=== PATIENT | female | born 1985 | race American Indian/Alaskan Native ===

== ENCOUNTER 2020-10-14 21:09 | Emergency (ER) | payer MEDICAID, OTHER ==
[2020-10-14 22:02] VITALS: BP 151/76
[2020-10-14 23:03] LABS: Basophils % (Auto) 0.5 % (0.0-1.8); Eosinophils # (Auto) 0.2 K/mm3 (0.0-0.4); Hematocrit 40.1 % (30.3-42.9); Lymphocytes # (Auto) 2.9 K/mm3 (1.2-5.4); Lymphocytes % (Auto) 33.8 % (13.4-35.0); Mean Corpuscular HGB Conc 35 % (30-34); Mean Corpuscular Volume 91 fl (79-97); Monocytes # (Auto) 0.6 K/mm3 (0.0-0.8); Monocytes % (Auto) 7.5 % (0.0-7.3); Platelet Count 229 K/mm3 (140-440); Red Blood Count 4.39 M/mm3 (3.65-5.03); Red Cell Distribution Width 12.8 % (13.2-15.2)
[2020-10-14 23:08] LABS: Bacteria,Urine 1+ /HPF (Negative); Bilirubin,Urine NEG (Negative); Blood,Urine MOD (Negative); Color,Urine Yellow (Yellow); Mucus,Urine 1+ /HPF; Protein,Urine <15 mg/dL mg/dL (Negative); Urobilinogen,Urine < 2.0 mg/dL (<2.0)
--- NOTE | 2020-10-15 00:07 | Ultrasound Report ---
PELVIC ULTRASOUND INDICATION: vag bleeding COMPARISON: None pertinent available TECHNIQUE: Transabdominal and endovaginal FINDINGS: Uterus measures 8.8 x 4.4 x 7 cm. Endometrial stripe measures 8 mm. The endometrial canal h as a mildly complex appearance in its upper portion without a defined fluid collection. No gestationa l sac is identified. There is some central vascularity posteriorly which I suspect is just within the myometrium rather than truly within the endometrium. No mass is seen. Right ovary measures 4.3 cm in length and shows small follicular-type cysts. Left ovary measures 4.3 cm in length and shows small follicular-type cysts. No adnexal masses are seen. Flow is noted in both ovaries. At most a trace of free fluid is seen. IMPRESSION: No intrauterine is identified. There probably is a small amount of blood in the uterus. There is vascularity in the central uterus adjacent to the possibly of within the posterior margin of the endometrium but no mass is seen. Ectopic is not excluded but I do not see evidence of that process. Signer Name: Clarence Hart MD Signed: 10/15/2020 12:03 AM Workstation Name: [id number]
--- NOTE | 2020-10-15 03:48 | Emergency Department Report ---
ED Female HPI - General Chief complaint: Vaginal Bleeding Stated complaint: MISCARRIAGE ULTRASOUND/DR REFERRED Time Seen by Provider: 10/15/20 02:39 Source: patient Mode of arrival: Ambulatory Limitations: No Limitations - History of Present Illness Initial comments: Pat 2 days. Gene is a 34-year-old -[place] female who presents for vaginal bleeding times 2 days. Patient is followed by [facility]STATE [facility]ASING MANAGER she is 8.5 weeks , last menstrual cycle 3 months ago, patient is G3, patient described bleeding at this time as dark red moderate. There is no fever, chills, nausea or vomiting. There are no exacerbating or relieving factors. 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 Complaint: vaginal bleeding - Related Data Previous Rx's Medication Instructions Recorded Last Taken Type Amoxicillin [Trimox CAP] 500 mg PO Q8H #30 capsule 11/23/14 Unknown Rx HYDROcodone/APAP 5-325 [Chandler 1 each PO Q4-6H PRN #16 tablet 11/23/14 Unknown Rx 5/325] predniSONE [Deltasone] 20 mg PO TID #9 tab 11/23/14 Unknown Rx cephALEXin [Keflex] 500 mg PO BID 7 Days #14 cap 10/15/20 Unknown Rx traMADoL [Ultram] 50 mg PO Q6HR PRN #12 tablet 10/15/20 Unknown Rx Allergies Allergy/AdvReac Type Severity Reaction Status Date / Time No Known Allergies Allergy Unverified 01/31/13 12:51 ED Review of Systems ROS: Stated complaint: MISCARRIAGE ULTRASOUND/DR REFERRED Other details as noted in HPI Constitutional: denies: chills, fever Eyes: denies: eye pain, eye discharge, vision change ENT: denies: ear pain, throat pain Respiratory: denies: cough, shortness of breath, wheezing Cardiovascular: denies: chest pain, palpitations Endocrine: no symptoms reported Gastrointestinal: abdominal pain. denies: nausea, vomiting, diarrhea, melena Genitourinary: denies: urgency, dysuria, frequency, hematuria, discharge, dyspareunia Musculoskeletal: back pain. denies: joint swelling, arthralgia Skin: denies: rash, lesions Neurological: denies: headache, weakness, paresthesias Psychiatric: denies: anxiety, depression Hematological/Lymphatic: denies: easy bleeding, easy bruising ED Past Medical Hx - Past Medical History Previous Medical History?: No - Surgical History Past Surgical History?: No - Social History Smoking Status: Never Smoker Substance Use Type: Alcohol - Medications Home Medications: Home Medications Medication Instructions Recorded Confirmed Last Taken Type Amoxicillin [Trimox CAP] 500 mg PO Q8H #30 capsule 11/23/14 Unknown Rx HYDROcodone/APAP 5-325 [Chandler 1 each PO Q4-6H PRN #16 tablet 11/23/14 Unknown Rx 5/325] predniSONE [Deltasone] 20 mg PO TID #9 tab 11/23/14 Unknown Rx cephALEXin [Keflex] 500 mg PO BID 7 Days #14 cap 10/15/20 Unknown Rx traMADoL [Ultram] 50 mg PO Q6HR PRN #12 tablet 10/15/20 Unknown Rx ED Physical Exam - General Limitations: No Limitations General appearance: alert, in no apparent distress - Head Head exam: Present: atraumatic, normocephalic - Eye Eye exam: Present: normal appearance, EOMI Pupils: Present: normal accommodation - ENT ENT exam: Present: normal exam - Neck Neck exam: Present: normal inspection, full ROM. Absent: tenderness - Respiratory Respiratory exam: Present: normal lung sounds bilaterally. Absent: respiratory distress, wheezes, stridor, chest wall tenderness - Cardiovascular Cardiovascular Exam: Present: regular rate, normal rhythm, normal heart sounds. Absent: systolic murmur, diastolic murmur, rubs, gallop - GI/Abdominal GI/Abdominal exam: Present: soft, normal bowel sounds. Absent: distended, tenderness, guarding, rebound, rigid, bruit, hernia - Rectal Rectal exam: Present: deferred - Extremities Exam Extremities exam: Present: normal inspection, full ROM, normal capillary refill. Absent: tenderness - Back Exam Back exam: Present: normal inspection, full ROM. Absent: CVA tenderness (R), CVA tenderness (L) - Neurological Exam Neurological exam: Present: alert, oriented X3, CN II-XII intact, normal gait, reflexes normal. Absent: motor sensory deficit - Expanded Neurological Exam Expanded Patient oriented to: Present: person, place, time Speech: Present: fluid speech Motor strength exam: RUE: 5, LUE: 5, RLE: 5, LLE: 5 Best Eye Response (Glo): (4) open spontaneously Best Motor Response (Glo): (6) obeys commands Best Verbal Response (Glo): (5) oriented [place] Total: 15 - Psychiatric Psychiatric exam: Present: normal affect, normal mood - Skin Skin exam: Present: warm, dry, intact, normal color. Absent: rash ED Course Vital Signs 10/14/20 22:00 Pulse Rate 85 Respiratory 18 Rate Blood Pressure 151/76 O2 Sat by Pulse 100 Oximetry ED Medical Decision Making - Lab Data Result diagrams: 10/14/20 22:19 Labs 10/14/20 10/14/20 10/14/20 22:19 22:19 22:19 WBC 8.5 RBC 4.39 Hgb 14.0 Hct 40.1 MCV 91 MCH 32 MCHC 35 H RDW 12.8 L Plt Count 229 Lymph % (Auto) 33.8 [place] % (Auto) 7.5 H Eos % (Auto) 2.0 Baso % (Auto) 0.5 Lymph # (Auto) 2.9 [place] # (Auto) 0.6 Eos # (Auto) 0.2 Baso # (Auto) 0.0 Seg Neutrophils % 56.2 Seg Neutrophils # 4.8 HCG, Qual Negative HCG, Quant 1.79 Urine Color Urine Turbidity Urine pH Ur Specific [place] Urine Protein Urine Glucose (UA) Urine Ketones Urine Blood Urine Nitrite Urine Bilirubin Urine Urobilinogen Ur Leukocyte Esterase Urine WBC (Auto) Urine RBC (Auto) U Epithel Cells (Auto) Urine Bacteria (Auto) Urine Mucus Blood Type 10/14/20 10/14/20 22:19 22:47 WBC RBC Hgb Hct MCV MCH MCHC RDW Plt Count Lymph % (Auto) [place] % (Auto) Eos % (Auto) Baso % (Auto) Lymph # (Auto) [place] # (Auto) Eos # (Auto) Baso # (Auto) Seg Neutrophils % Seg Neutrophils # HCG, Qual HCG, Quant Urine Color Yellow Urine Turbidity Slightly-cloudy Urine pH 6.0 Ur Specific [place] 1.014 Urine Protein <15 mg/dl Urine Glucose (UA) Neg Urine Ketones Neg Urine Blood Mod Urine Nitrite Neg Urine Bilirubin Neg Urine Urobilinogen < 2.0 Ur Leukocyte Esterase Mod Urine WBC (Auto) 3.0 Urine RBC (Auto) 5.0 U Epithel Cells (Auto) 25.0 H Urine Bacteria (Auto) 1+ Urine Mucus 1+ Blood Type B POSITIVE - Radiology Data Radiology results: report reviewed, image reviewed TECHNIQUE: Transabdominal and endovaginal FINDINGS: Uterus measures 8.8 x 4.4 x 7 cm. Endometrial stripe measures 8 mm. The endometrial canal has a mildly complex appearance in its upper portion without a defined fluid collection. No gestational sac is identified. There is some central vascularity posteriorly which I suspect is just within the myometrium rather than truly within the endometrium. No mass is seen. Right ovary measures 4.3 cm in length and shows small follicular-type cysts. Left ovary measures 4.3 cm in length and shows small follicular-type cysts. No adnexal masses are seen. Flow is noted in both ovaries. At most a trace of free fluid is seen. IMPRESSION: No intrauterine is identified. There probably is a small amount of blood in the uterus. There is vascularity in the central uterus adjacent to the possibly of within the posterior margin of the endometrium but no mass is seen. Ectopic is not excluded but I do not see evidence of that process. Signer Na me: Clarence Hart MD Signed: 10/15/2020 12:03 AM Workstation Name: [id number] Transcribed By: GJ Dictated By: Clarence Hart MD Electronically Authenticated By: Clarence Hart MD Signed Date/Time: 10/15/20 0003 DD/ [id number] TD/TT: - Medical Decision Making Ultrasound OB no IUP, no IUP, Labs normal, ua posed for [place], patient will follow-up with [facility] LEASING MANAGER today [facility] [employer] [facility], patient DC'd to home in stable condition at this time. Patient will return to ED should symptoms worsen. Critical care attestation.: If time is entered above; I have spent that time in minutes in the direct care of this critically ill patient, excluding procedure time. ED Disposition Clinical Impression: Miscarriage Disposition: DC-01 TO HOME OR SELFCARE Is pt being admited?: No Does the pt Need Aspirin: No Condition: Stable Instructions: Miscarriage, [id number] Additional Instructions: Take medications as prescribed. Follow-up with [employer] ESTATE LEASING MANAGER today as scheduled. Return to emergency should symptoms worsen. Prescriptions: cephALEXin [Keflex] 500 mg PO BID 7 Days #14 cap traMADoL [Ultram] 50 mg PO Q6HR PRN #12 tablet PRN Reason: Pain Referrals: MAURICIO NICHOLSON MD [Primary Care Provider] - 3-5 Days Forms: Work/School Release Form(ED) Time of Disposition: 03:51
== END 2020-10-15 03:59 | disposition home or self-care (01) ==
LOC: ED 21:09
DX: O03.9 Complete or unspecified spontaneous abortion without complication (principal); Z3A.00 Weeks of gestation of pregnancy not specified; Z79.2 Long term (current) use of antibiotics; Z79.899 Other long term (current) drug therapy
CPT/HCPCS: 36415; 76801; 76817; 81001; 84702; 84703; 85025; 86900; 86901

== ENCOUNTER 2020-11-01 10:29 | Emergency (ER) | payer OTHER ==
[2020-11-01 10:44] VITALS: BP 137/75
--- NOTE | 2020-11-01 10:57 | Emergency Department Report ---
ED Female HPI - General Chief complaint: Urogenital-Female Stated complaint: SWELLING IN VAGINAL AREA Time Seen by Provider: 11/01/20 10:56 Source: patient Mode of arrival: Ambulatory Limitations: No Limitations - History of Present Illness Initial comments: 34-year-old female with no significant past history presents to the ER today with complaints of swelling to her labia. Patient states that she had some mild itching to start with but since then has gotten swollen and sore. She states that she also started her menstrual cycle today. She denies any apparent rash, or any apparent abnormal vaginal discharge. She denies any abdominal pelvic pain or lower back pain. She denies any UTI symptoms. She states that she has had the same sexual partner and is not concerned for STD. She denies any fever or chills. She reports no other symptoms at this time. Complaint: other (vaginal swelling) -: days(s) (1) Location: labia - Related Data Previous Rx's Medication Instructions Recorded Last Taken Type Fluconazole [Diflucan TAB] 200 mg PO QDAY #2 tablet 11/01/20 Unknown Rx metroNIDAZOLE [Flagyl] 500 mg PO Q12HR #14 tab 11/01/20 Unknown Rx Allergies Allergy/AdvReac Type Severity Reaction Status Date / Time No Known Allergies Allergy Unverified 01/31/13 12:51 ED Review of Systems ROS: Stated complaint: SWELLING IN VAGINAL AREA Other details as noted in HPI Comment: All other systems reviewed and negative Constitutional: denies: chills, fever Gastrointestinal: denies: abdominal pain, nausea, vomiting, diarrhea, constipation, hematemesis, hematochezia Genitourinary: other (vaginal swelling/soreness). denies: urgency, dysuria, frequency, hematuria, discharge, abnormal menses, dyspareunia Skin: pruritus (vaginal ) ED Past Medical Hx - Past Medical History Previous Medical History?: No - Surgical History Past Surgical History?: No - Social History Smoking Status: Never Smoker Substance Use Type: Alcohol - Medications Home Medications: Home Medications Medication Instructions Recorded Confirmed Last Taken Type Fluconazole [Diflucan TAB] 200 mg PO QDAY #2 tablet 11/01/20 Unknown Rx metroNIDAZOLE [Flagyl] 500 mg PO Q12HR #14 tab 11/01/20 Unknown Rx ED Physical Exam - General Limitations: No Limitations General appearance: alert, in no apparent distress - Head Head exam: Present: atraumatic, normocephalic, normal inspection - Respiratory Respiratory exam: Absent: respiratory distress - Cardiovascular Cardiovascular Exam: Present: regular rate - GI/Abdominal GI/Abdominal exam: Present: soft. Absent: distended, tenderness, guarding, rebound, rigid - External exam: Present: swelling (mild swelling noted to both left and right labia majora with some mild excoriations noted but otherwise no ulceration, abscess, or lesions or any other abnormality noted). Absent: erythema, lesions, lacerations, ecchymosis Speculum exam: Present: vaginal bleeding (small amt of blood noted in vaginal vault). Absent: erythema, vaginal discharge, tissue, laceration Bi-manual exam: Present: normal bi-manual exam. Absent: cervical motion tendernes, adnexal tenderness, adnexal mass - Neurological Exam Neurological exam: Present: alert, oriented X3, CN II-XII intact, normal gait - Psychiatric Psychiatric exam: Present: normal affect, normal mood - Skin Skin exam: Present: intact ED Course Vital Signs 11/01/20 10:41 Temperature 98.7 F Pulse Rate 66 Respiratory 18 Rate Blood Pressure 137/75 [Right] O2 Sat by Pulse 99 Oximetry ED Medical Decision Making - Medical Decision Making 34-year-old female with no significant past history presents to the ER today with complaints of swelling to her labia. Patient states that she had some mild itching to start with but since then has gotten swollen and sore. She states that she also started her menstrual cycle today. She denies any apparent rash, or any apparent abnormal vaginal discharge. She denies any abdominal pelvic pain or lower back pain. She denies any UTI symptoms. She states that she has had the same sexual partner and is not concerned for STD. She denies any fever or chills. She reports no other symptoms at this time. 1150: UA appears more contaminated than true UTI. Wet prep shows bacterial vaginosis but negative for yeast though on physical exam there is concern for an external vaginal yeast infection. Wet prep also negative for trichomonas. Gonorrhea and Chlamydia cultures pending. She states that she is not concerned for any gonorrhea chlamydia and does not want prophylactic treatment at this time. Patient is well-appearing, not toxic and not in any acute distress. She is neurologically intact with a normal gait. Her vital signs are stable. Discussed lab results, suspected diagnosis and treatment plan with patient. She expresses understanding of instructions and agree with plan. Patient was stab le at time of discharge. Critical care attestation.: If time is entered above; I have spent that time in minutes in the direct care of this critically ill patient, excluding procedure time. ED Disposition Clinical Impression: Bacterial vaginosis, Vulvovaginitis due to yeast Disposition: DC-01 TO HOME OR SELFCARE Is pt being admited?: No Does the pt Need Aspirin: No Condition: Stable Instructions: Bacterial Vaginosis, [id number], Skin Yeast Infection, Bacterial Vaginosis (ED) Additional Instructions: Take the flagyl and the diflucan as prescribed. Do not drink alcohol while taking flagyl. You can continue using monistat cream. Take motrin or tylenol for pain. Follow up with your obgyn. Return to ED if worse. Prescriptions: Fluconazole [Diflucan TAB] 200 mg PO QDAY #2 tablet metroNIDAZOLE [Flagyl] 500 mg PO Q12HR #14 tab Referrals: [facility] [Provider Group] - 3-5 Days Forms: STI Treatment and Prevention Time of Disposition: 11:49
[2020-11-01 11:34] LABS: Bacteria,Urine 1+ /HPF (Negative); Bilirubin,Urine NEG (Negative); Blood,Urine LG (Negative); Color,Urine Red (Yellow); Mucus,Urine FEW /HPF; Urobilinogen,Urine < 2.0 mg/dL (<2.0)
[2020-11-01 11:36] LABS: HCG Qualitative,Urine Negative (Negative)
== END 2020-11-01 12:07 | disposition home or self-care (01) ==
LOC: ED 10:29
DX: B37.3 Candidiasis of vulva and vagina (principal); N76.0 Acute vaginitis; B96.4 Proteus (mirabilis) (morganii) as the cause of diseases classified elsewhere; Z79.899 Other long term (current) drug therapy
CPT/HCPCS: 81001; 81025; 87086; 87210; 87591

== ENCOUNTER 2021-03-15 03:53 | Emergency (ER) | payer OTHER ==
[2021-03-15 04:40] LABS: Bacteria,Urine 1+ /HPF (Negative); Bilirubin,Urine NEG (Negative); Blood,Urine SM (Negative); Color,Urine Yellow (Yellow); HCG Qualitative,Urine Negative (Negative); Mucus,Urine FEW /HPF; Protein,Urine <15 mg/dL mg/dL (Negative); Urobilinogen,Urine < 2.0 mg/dL (<2.0)
--- NOTE | 2021-03-15 07:56 | Emergency Department Report ---
ED Female HPI - General Chief complaint: Urogenital-Female Stated complaint: ALLERGIC REACTION Time Seen by Provider: 03/15/21 07:30 Source: patient Mode of arrival: Ambulatory Limitations: No Limitations - History of Present Illness Initial comments: This is a 35-year-old female nontoxic, well nourished in appearance, no acute signs of distress presents to the ED with c/o of vaginal discharge, dysuria, and vaginal pain with swelling x 1 day. Patient stated used monostat for symptoms and today started to have vaginal swelling. Patient denies any vaginal ulcers or lesions. Patient denies any nausea, vomiting, chest pain, shortness of breathe, fever, chills, headache, back pain, numbness, tingling, stiff neck. Patient denies any other urinary symptoms. Patient denies any allergies or PMH. MD Complaint: vaginal discharge, dysuria -: days(s) Radiation: non-radiating Severity: mild Severity scale (0 -10): 3 Quality: burning Improves with: none Worsens with: urination Associated Symptoms: vaginal discharge, dysuria. denies: vaginal bleeding, abdominal pain, nausea/vomiting, fever/chills, headaches, loss of appetite, hematuria, rash, seizure, shortness of breath, syncope, weakness - Related Data Previous Rx's Medication Instructions Recorded Last Taken Type Fluconazole [Diflucan TAB] 200 mg PO QDAY #2 tablet 11/01/20 Unknown Rx metroNIDAZOLE [Flagyl] 500 mg PO Q12HR #14 tab 11/01/20 Unknown Rx cephALEXin [Keflex] 500 mg PO Q8HR #21 cap 03/15/21 Unknown Rx metroNIDAZOLE [Flagyl] 500 mg PO Q12HR #14 tab 03/15/21 Unknown Rx Allergies Allergy/AdvReac Type Severity Reaction Status Date / Time No Known Allergies Allergy Verified 03/15/21 04:03 ED Review of Systems ROS: Stated complaint: ALLERGIC REACTION Other details as noted in HPI Comment: All other systems reviewed and negative Constitutional: denies: chills, fever Eyes: denies: eye pain, eye discharge, vision change ENT: denies: ear pain, throat pain Respiratory: denies: cough, shortness of breath, wheezing Cardiovascular: denies: chest pain, palpitations Endocrine: no symptoms reported Gastrointestinal: denies: abdominal pain, nausea, diarrhea Genitourinary: dysuria, discharge. denies: urgency, frequency, hematuria, abnormal menses, dyspareunia Musculoskeletal: denies: back pain, joint swelling, arthralgia Skin: denies: rash, lesions Neurological: denies: headache, weakness, paresthesias Psychiatric: denies: anxiety, depression Hematological/Lymphatic: denies: easy bleeding, easy bruising ED Past Medical Hx - Past Medical History Previous Medical History?: No - Social History Smoking Status: Never Smoker Substance Use Type: Alcohol - Medications Home Medications: Home Medications Medication Instructions Recorded Confirmed Last Taken Type Fluconazole [Diflucan TAB] 200 mg PO QDAY #2 tablet 11/01/20 Unknown Rx metroNIDAZOLE [Flagyl] 500 mg PO Q12HR #14 tab 11/01/20 Unknown Rx cephALEXin [Keflex] 500 mg PO Q8HR #21 cap 03/15/21 Unknown Rx metroNIDAZOLE [Flagyl] 500 mg PO Q12HR #14 tab 03/15/21 Unknown Rx ED Physical Exam - General Limitations: No Limitations General appearance: alert, in no apparent distress - Head Head exam: Present: atraumatic, normocephalic - Eye Eye exam: Present: normal appearance - Neck Neck exam: Present: normal inspection, full ROM. Absent: lymphadenopathy - Respiratory Respiratory exam: Absent: respiratory distress - Cardiovascular Cardiovascular Exam: Present: regular rate - GI/Abdominal GI/Abdominal exam: Present: soft, normal bowel sounds. Absent: distended, tenderness, guarding, rebound, rigid, diminished bowel sounds - External exam: Present: normal external exam, swelling (slight to bilateral labia with no redness or abscess in appearance), other ([employer] Supervisor Sayra RN present during exam). Absent: erythema, lesions, lacerations, ecchymosis, bleeding Speculum exam: Present: cervical discharge, other ([employer] Rate Supervisor Sayra RN present during exam). Absent: erythema, vaginal discharge, vaginal bleeding, foreign body, tissue, laceration Bi-manual exam: Present: normal bi-manual exam, other ([employer] Rate Supervisor Sayra RN present during exam). Absent: cervical motion tendernes, adnexal tenderness, adnexal mass, uterine enlargement, uterine tenderness - Extremities Exam Extremities exam: Present: normal inspection, full ROM - Back Exam Back exam: Present: normal inspection, full ROM. Absent: tenderness, CVA tenderness (R), CVA tenderness (L), muscle spasm, paraspinal tenderness, vertebral tenderness, rash noted - Neurological Exam Neurological exam: Present: alert, oriented X3, normal gait - Psychiatric Psychiatric exam: Present: normal affect, normal mood - Skin Skin exam: Present: warm, dry, intact, normal color. Absent: rash ED Course Vital Signs 03/15/21 03/15/21 03/15/21 04:01 04:03 09:06 Temperature 97.8 F 98.0 F Pulse Rate 82 67 Respiratory 16 18 Rate Blood Pressure 120/86 Blood Pressure 110/69 [Left] O2 Sat by Pulse 96 100 Oximetry 03/15/21 09:10 Temperature Pulse Rate Respiratory 18 Rate Blood Pressure Blood Pressure [Left] O2 Sat by Pulse 100 Oximetry - Reevaluation(s) Reevaluation #1: 03/15/21 07:58 Patient is speaking in full sentences with no signs of distress noted. ED Medical Decision Making - Lab Data Lab Results 03/15/21 Range/Units Unknown Urine Color Yellow (Yellow) Urine Turbidity Cloudy (Clear) Urine pH 6.0 (5.0-7.0) Ur Specific [place] 1.024 (1.003-1.030) Urine Protein <15 mg/dl (Negative) mg/dL Urine Glucose (UA) Neg (Negative) mg/dL Urine Ketones Neg (Negative) mg/dL Urine Blood Sm (Negative) Urine Nitrite Neg (Negative) Ur Reducing Substances Not Reportable Urine Bilirubin Neg (Negative) Urine Ictotest Not Reportable Urine Urobilinogen < 2.0 (<2.0) mg/dL Ur Leukocyte Esterase Lg (Negative) Urine WBC (Auto) 134.0 H (0.0-6.0) /HPF Urine RBC (Auto) 29.0 (0.0-6.0) /HPF U Epithel Cells (Auto) 8.0 (0-13.0) /HPF Urine Bacteria (Auto) 1+ (Negative) /HPF Urine Mucus Few /HPF Urine Yeast (Budding) 2+ /HPF Urine HCG, Qual Negative (Negative) - Medical Decision Making This is a 35-year-old female that presents with back to vaginosis, UTI and trichomonas. Patient is stable was examined by me. There is no abdominal tenderness. No pelvic pain. UA obtained. Wet prep obtained. Gonorrhea chlamydia swab pending. Patient was instructed to return in 3-5 days for GC results. Patient received 1G rocephine IV. Patient stated she does not want empirical treatment for possible STD but stated just wants to be tested at this time and if positive will get treated. Patient was instructed to Follow-up with a primary care doctor in 3-5 days or if symptoms worsen and continue return to emergency room as soon as possible. At time of discharge, the patient does not seem toxic or ill in appearance. No acute signs of distress noted. Patient agrees to discharge treatment plan of care. No further questions noted by the patient. Critical care attestation.: If time is entered above; I have spent that time in minutes in the direct care of this critically ill patient, excluding procedure time. ED Disposition Clinical Impression: Bacterial vaginosis, Trichomonas vaginalis (TV) infection UTI (urinary tract infection) Qualifiers: Urinary tract infection type: acute cystitis Hematuria presence: without hematuria Qualified Code(s): N30.00 - Acute cystitis without hematuria Disposition: HOME / SELF CARE / HOMELESS Is pt being admited?: No Does the pt Need Aspirin: No Condition: Stable Instructions: Bacterial Vaginosis, [id number], Urinary Tract Infection, Adult, Trichomoniasis, Metronidazole tablets or capsules, Bacterial Vaginosis (ED) Additional Instructions: Follow-up with a primary care doctor in 3-5 days or if symptoms worsen and continue return to emergency room as soon as possible. Prescriptions: metroNIDAZOLE [Flagyl] 500 mg PO Q12HR #14 tab cephALEXin [Keflex] 500 mg PO Q8HR #21 cap Referrals: JAMAL TOM MD [Primary Care Provider] - 3-5 Days MELISSA LEWIS MD [Staff Physician] - 3-5 Days Forms: Work/School Release Form(ED) Time of Disposition: 09:55
[2021-03-15 09:09] VITALS: BP 110/69
[2021-03-15] MEDS ORDERED: LIDOCAINE-MPF (1%) 10 MG/1 ML VIAL 5 ML INFILTRATI ONE (09:55)
== END 2021-03-15 10:43 | disposition home or self-care (01) ==
LOC: ED 03:53
DX: N76.0 Acute vaginitis (principal); B96.89 Other specified bacterial agents as the cause of diseases classified elsewhere; A59.9 Trichomoniasis, unspecified; N39.0 Urinary tract infection, site not specified; Z72.89 Other problems related to lifestyle; Z79.899 Other long term (current) drug therapy
CPT/HCPCS: 81001; 81025; 87210; 87591; 96372; 99284; J0696